=== PATIENT | male | born 1975 | race Hispanic/Latino ===

== ENCOUNTER 2017-09-25 10:26 | Outpatient (CLI) | payer OTHER | END 2017-09-25 10:27 | disposition home or self-care (01) | LOC: BICULT 10:26 | PROVIDERS: ATTEND Urology | DX: N32.2 Vesical fistula, not elsewhere classified (principal); N50.3 Cyst of epididymis; N43.3 Hydrocele, unspecified; N50.89 Other specified disorders of the male genital organs | CPT/HCPCS: 76870; 93976 ==

== ENCOUNTER 2018-04-02 09:39 | Emergency (ER) | payer OTHER ==
--- NOTE | 2018-04-02 11:52 | RAD ---
RIGHT FOOT 2 VIEWS: HISTORY: Pain. Right great toe swelling. COMPARISON: None. FINDINGS: No acute fracture or malalignment. Soft tissues are unremarkable. Mild vascular calcifications. IMPRESSION: No acute abnormality. POS: [facility]
== END 2018-04-02 12:15 | disposition home or self-care (01) ==
LOC: ERS 09:39
DX: S90.31XA Contusion of right foot, initial encounter (principal); K21.9 Gastro-esophageal reflux disease without esophagitis; F84.0 Autistic disorder; G40.909 Epilepsy, unspecified, not intractable, without status epilepticus; F41.9 Anxiety disorder, unspecified; Z79.899 Other long term (current) drug therapy; X58.XXXA Exposure to other specified factors, initial encounter

== ENCOUNTER 2018-11-26 19:54 | Emergency (ER) | payer OTHER | END 2018-11-26 20:31 | disposition home or self-care (01) | LOC: SCSER 19:54 | DX: S09.90XA Unspecified injury of head, initial encounter (principal); K21.9 Gastro-esophageal reflux disease without esophagitis; F84.0 Autistic disorder; G40.909 Epilepsy, unspecified, not intractable, without status epilepticus; F41.9 Anxiety disorder, unspecified; Z79.899 Other long term (current) drug therapy; X58.XXXA Exposure to other specified factors, initial encounter | CPT/HCPCS: 99283 ==

== ENCOUNTER 2019-03-06 16:42 | Emergency (ER) | payer OTHER ==
[2019-03-06] MEDS ORDERED: Bacitracin 1 PK ONE (17:46)
== END 2019-03-06 17:51 | disposition home or self-care (01) ==
LOC: SCSER 16:42
DX: S00.432A Contusion of left ear, initial encounter (principal); S00.431A Contusion of right ear, initial encounter; S00.01XA Abrasion of scalp, initial encounter; M95.12 Cauliflower ear, left ear; M95.11 Cauliflower ear, right ear; F84.0 Autistic disorder; G40.909 Epilepsy, unspecified, not intractable, without status epilepticus; F41.9 Anxiety disorder, unspecified; K21.9 Gastro-esophageal reflux disease without esophagitis; Z79.899 Other long term (current) drug therapy; X58.XXXA Exposure to other specified factors, initial encounter
CPT/HCPCS: 99283

== ENCOUNTER 2020-04-14 15:46 | Emergency (ER) | payer OTHER ==
[2020-04-15 02:28] LABS: SARS-CoV-2 MS2 Positive; SARS-CoV-2 N Gene Negative; SARS-CoV-2 S Gene Negative; SARS-CoV-2 by NAA Not Detected (NotDetected); SARS-CoV-2 orf1ab Negative
== END 2020-04-14 17:02 | disposition home or self-care (01) ==
LOC: ERS 15:46
DX: Z20.822 Contact with and (suspected) exposure to COVID-19 (principal)
CPT/HCPCS: 87635; 99283; U0003

== ENCOUNTER 2022-08-01 12:41 | Emergency (ER) | payer OTHER | END 2022-08-01 13:42 | disposition left against medical advice (07) | LOC: EEVIPCON 12:41 → ERS 12:41 | DX: Z53.21 Procedure and treatment not carried out due to patient leaving prior to being seen by health care provider (principal) ==